=== PATIENT | female | born 1960 | race Hispanic/Latino ===

== ENCOUNTER 2017-03-18 09:23 | Outpatient (CLI) | payer OTHER ==
--- NOTE | 2017-03-18 14:54 | Mammography Report ---
BILATERAL DIGITAL SCREENING MAMMOGRAM with CAD: 03/18/17 09:23:00 CLINICAL: Routine screening. COMPARISON:03/18/16 FINDINGS: The breasts are mostly fatty with heterogeneously dense residual bilateral retroareolar fibroglandular densities. No mass, architectural distortion or suspicious calcifications. IMPRESSION: No mammographic evidence of malignancy. BI-RADS CATEGORY: 1 - - Negative RECOMMENDATION: Routine mammographic screening in one year.
== END 2017-03-18 09:24 | disposition home or self-care (01) ==
LOC: SPVWC 09:23
PROVIDERS: ATTEND Obstetrics & Gynecology
DX: Z12.31 Encounter for screening mammogram for malignant neoplasm of breast (principal)
CPT/HCPCS: 77067; G0202

== ENCOUNTER 2019-03-22 08:51 | Outpatient (CLI) | payer OTHER ==
--- NOTE | 2019-03-22 16:18 | Mammography Report ---
DIGITAL SCREENING MAMMOGRAM WITH CAD, 03/22/2019 INDICATION: Routine screening mammography. TECHNIQUE: Digital bilateral 2D mammography was obtained in the craniocaudal and mediolateral obliq ue projections. This examination was interpreted with the benefit of Computer-Aided Detection analysi s. COMPARISON: 03/19/2018 FINDINGS: Breast Density: The breasts are heterogeneously dense, which may obscure small masses. There is no evidence of dominant mass, suspicious calcifications or architectural distortion in eithe r breast. IMPRESSION: No mammographic evidence of malignancy. Follow up recommendation: Routine yearly BI-RADS Category 1: Negative. A "normal" or negative report should not discourage follow up or biopsy of a clinically significant f inding. A written summary of these findings will be mailed to the patient. The patient will be entered into a mammography reporting system which will generate a reminder letter for the patient's next appointmen t at the appropriate interval. The [employer] recommends yearly mammograms starting at age 40 and continuing as l araseli as a woman is in good health. Breast MRI is recommended for women with an approximate 20-25% or greater lifetime risk of breast cancer, including women with a strong family history of breast or ova yessica cancer or who have been treated for Hodgkin's disease. Signer Name: Junior Hewitt MD Signed: 03/22/2019 4:14 PM Workstation Name: [id number]
== END 2019-03-22 08:52 | disposition home or self-care (01) ==
LOC: SPVWC 08:51
PROVIDERS: ATTEND Obstetrics & Gynecology
DX: Z12.31 Encounter for screening mammogram for malignant neoplasm of breast (principal)
CPT/HCPCS: 77067

== ENCOUNTER 2020-06-07 10:32 | Outpatient (CLI) | payer OTHER ==
--- NOTE | 2020-06-07 12:00 | Mammography Report ---
DIGITAL SCREENING MAMMOGRAM WITH CAD, 06/07/2020 CLINICAL INFORMATION / INDICATION: Routine screening mammography. TECHNIQUE: Digital bilateral 2D mammography was obtained in the craniocaudal and mediolateral obliqu e projections. This examination was interpreted with the benefit of Computer-Aided Detection analysis . COMPARISON: 03/22/2019, 03/19/2018, 03/18/2017 FINDINGS: Breast Density: There are scattered areas of fibroglandular density. No dominant mass, suspicious calcifications, or architectural distortion in the right breast. There is a new circumscribed 4 mm nodular density in the left breast at the 2:00 position middle dept h which will require additional evaluation. IMPRESSION: New circumscribed density in the left breast which will require additional evaluation wit h left breast ultrasound and possible additional compression views. Follow up recommendation: Ultrasound BI-RADS Category 0: Incomplete. Needs additional imaging evaluation and/or prior mammograms for edna galarza. A "normal" or negative report should not discourage follow up or biopsy of a clinically significant f inding. A written summary of these findings will be mailed to the patient. The patient will be entered into a mammography reporting system which will generate a reminder letter for the patient's next appointmen t at the appropriate interval. The [employer] recommends yearly mammograms starting at age 40 and continuing as l araseli as a woman is in good health. Breast MRI is recommended for women with an approximate 20-25% or greater lifetime risk of breast cancer, including women with a strong family history of breast or ova yessica cancer or who have been treated for Hodgkin's disease. Signer Name: Annamarie Trinh MD Signed: 06/07/2020 11:56 AM Workstation Name: [id number]
== END 2020-06-07 10:33 | disposition home or self-care (01) ==
LOC: SPVWC 10:32
PROVIDERS: ATTEND Obstetrics & Gynecology
DX: Z12.31 Encounter for screening mammogram for malignant neoplasm of breast (principal)
CPT/HCPCS: 77067

== ENCOUNTER 2020-06-20 13:39 | Outpatient (CLI) | payer OTHER ==
--- NOTE | 2020-06-20 14:44 | Ultrasound Report ---
ULTRASOUND BREAST LEFT LIMITED, 06/20/2020 CLINICAL INFORMATION / INDICATION: ABNORMAL MAMMO/DENSE BRST TISSUE/BRST NODULE. Patient presents as a callback from screening mammogram for further evaluation of a nodular density in the left breast. TECHNIQUE: Targeted ultrasound evaluation was performed of the area of interest. COMPARISON: Prior mammograms 06/07/2020 FINDINGS: Corresponding with the nodular density seen on recent mammogram, there is an 8 mm benign cyst in the left breast 2:00 position located 6 cm from the nipple. No suspicious solid lesion identified. IMPRESSION: 1. A benign cyst accounts for the mammographic finding. No suspicious sonographic abnormality identif ied. Follow up recommendation: Routine yearly BI-RADS Category 2: Benign. A normal or "negative" report should not preclude biopsy or follow-up of a clinically suspicious find ing. Signer Name: Xi Norris MD Signed: 06/20/2020 2:39 PM Workstation Name: [id number]
== END 2020-06-20 13:40 | disposition home or self-care (01) ==
LOC: SPVWC 13:39
PROVIDERS: ATTEND Obstetrics & Gynecology
DX: N60.01 Solitary cyst of right breast (principal)